=== PATIENT | male | born 1975 | race Caucasian/White ===

== ENCOUNTER 2016-09-24 00:38 | Observation (INO) | payer OTHER ==
[~2016-09-24] VITALS: Ht 175.3 cm; Wt 100.5 kg
[~2016-09-24 00:38] MED LIST: FLEXERIL10 MG PO; NAPROXEN500 MG PO; PERCOCET 5/31 TABLET PO; PRAVACHOL20 MG PO
[2016-09-24 05:10] LABS: HEMATOCRIT 42.4 % (38.0-50.0); MCHC 35.1 G/DL (30.0-36.0); MCV 82.7 FL (86-99); MEAN PLAT.VOLUME 9.7 uM^3 (9.0-12.4); PLATELET COUNT 239 K/uL (156-360); RBC DIS.WIDTH-CV 12.8 % (11.8-14.6); RED BLOOD COUNT 5.13 M/uL (4.00-5.50)
[2016-09-24 05:17] LABS: CHLORIDE 108 mEq/L (99-109); POTASSIUM 4.3 mEq/L (3.7-5.4); SODIUM 140 mEq/L (136-147)
[2016-09-24 05:19] LABS: GLUCOSE 125 mg/dL (70-99)
[2016-09-24 05:20] LABS: ANION GAP 9 MEQ/L (2-14)
[2016-09-24 05:23] LABS: GFR ESTIMATE (CALCULATED) > 59 mL/min/
[2016-09-24 05:24] LABS: UREA NITROGEN (BUN) 12 mg/dL (9-23)
[2016-09-24 07:07] VITALS: BP 151/80
[2016-09-24] MEDS ORDERED: FLEXERIL10 MG PO (09:37)
[2016-09-24] MEDS ORDERED: PERCOCET 5/31 TABLET PO (09:37)
[2016-09-24 14:59] VITALS: BP 125/81
[2016-09-24 19:00] VITALS: BP 153/90
[2016-09-25] VITALS: BP 134/82
[2016-09-25 04:00] VITALS: BP 135/83
[2016-09-25 07:58] VITALS: BP 139/86
[2016-09-25 11:28] VITALS: BP 138/82
== END 2016-09-25 14:06 | disposition home or self-care (01) ==
LOC: EME 00:38 → EDOF 05:39 → 5WEST 06:58
PROVIDERS: Emergency Medicine
DX: S22.088A Other fracture of T11-T12 vertebra, initial encounter for closed fracture (principal); S32.018A Other fracture of first lumbar vertebra, initial encounter for closed fracture; X50.0XXA Overexertion from strenuous movement or load, initial encounter; Y99.0 Civilian activity done for income or pay; M62.830 Muscle spasm of back; M54.40 Lumbago with sciatica, unspecified side; E66.9 Obesity, unspecified; Z68.33 Body mass index [BMI] 33.0-33.9, adult
CPT/HCPCS: 72131; 72148; 80048; 81003; 85027; 99281; 99285; G0378; G8978 GP CM; G8979 CJ; J1100; J1200; J1885; J2270; J3010; J3360; J7030

== ENCOUNTER → 2017-08-25 | Outpatient (CLI) | payer OTHER | END | disposition home or self-care (01) | LOC: RAD 08-18 13:30 → MRI 13:33 → RAD 14:00 → MRI 14:00 | DX: S32.010D Wedge compression fracture of first lumbar vertebra, subsequent encounter for fracture with routine healing (principal); M53.85 Other specified dorsopathies, thoracolumbar region; M47.897 Other spondylosis, lumbosacral region; Z98.890 Other specified postprocedural states; S22.080A Wedge compression fracture of T11-T12 vertebra, initial encounter for closed fracture; S32.020A Wedge compression fracture of second lumbar vertebra, initial encounter for closed fracture | CPT/HCPCS: 72146; 72148 ==

== ENCOUNTER 2017-08-31 10:02 | Emergency (ER) | payer OTHER ==
[~2017-08-31] VITALS: Ht 175.3 cm; Wt 101.3 kg
[2017-08-31 12:56] VITALS: BP 126/84
== END 2017-08-31 12:57 | disposition home or self-care (01) ==
LOC: EME 10:02
DX: S30.0XXA Contusion of lower back and pelvis, initial encounter (principal); S39.012A Strain of muscle, fascia and tendon of lower back, initial encounter; S20.211A Contusion of right front wall of thorax, initial encounter; W10.9XXA Fall (on) (from) unspecified stairs and steps, initial encounter; E78.5 Hyperlipidemia, unspecified
CPT/HCPCS: 71100; 72128; 72131; 99281; 99284; J3010